=== PATIENT | male | born 1995 | race Two or more races ===

== ENCOUNTER 2023-10-26 17:46 | Emergency (ER) | payer SELFPAY ==
--- NOTE | 2023-10-26 17:45 | DI.RAD_ITS ---
Exam(s) XR HAND RT COMPLETE EXAM: XR HAND RT COMPLETE CLINICAL HISTORY: crush injury, dorsal 3rd MCP swollen. TECHNIQUE: 2D digital imaging was performed of the right hand. Three images were obtained. AP, late ral and oblique views were obtained. COMPARISON: No exams were available for comparison FINDINGS: BONES: No acute fracture is present. No bony destructive lesion is seen. There is a deformity of the 5th metacarpal bone which may reflect old healed fracture. JOINTS: No dislocation present. SOFT TISSUE: There is soft tissue swelling along the dorsum of the hand at the level of the MCP joint s. IMPRESSION: Soft tissue swelling on the dorsum of the hand but no acute fracture or dislocation is identified. DATA REPOSITORY: RADIATION DOSE DELIVERED:
[2023-10-26 17:48] VITALS: BP 127/82; PULSE 112; RESP 16; TEMP 36.8; O2SAT 98
--- NOTE | 2023-10-26 17:54 | W.ED.GENAD ---
Discharge Plan Disposition Patient Disposition: Home Condition: Stable Discharge Details Clinical Impression: Contusion of right hand Primary Care Provider: Unknown,Unknown ED Provider: Derek Jones Discharge Instructions Instructions: Minor Contusion ED Additional Instructions: You were seen in the emergency department for the significant contusion at the base of your right middle finger. There is no fracture seen on your x-ray and your tendons appear to be intact on exam. Please ice the area with gentle compression, ice to complete numbness then let rewarm, repeat this process as many times as you can in the next 4 to 5 days. Please use therapeutic dosing of Tylenol (acetamenophen) & Advil (ibuprofen) in an alternating fashion as follows: Take 1000mg of Tylenol every 6 hours without missing doses- that is 4 times per day. [place] in between the Tylenol dosings, take 400-600mg of Advil also on a 6 hour schedule, that is also 4 times per day. The daily maximum dosing of Tylenol is 4000mg, and the daily maximum dosing of Advil is 2400mg. This is safe to do for weeks. Please note that some common cold medications & prescription pain medications may contain acetamenophen and you need to read OTC drug labels and factor that in to maximum daily dosings. Please follow-up with orthopedics if your pain or range of motion deficit persist past 2 weeks. Please return to the ER for severe increase in swelling, redness, warmth to touch, drainage of pus from the area. Referrals: [facility] [Provider Group] Discharge Data Discharge Date/Time-TO BE ENTERED AT DEPARTURE: 10/26/23 19:12 HPI General Date/Time Provider Initiated Documentation: 10/26/23 17:52. HPI Narrative: 28 year-old male presents to ED today by POV/ambulating with a chief complaint of R dorsal hand injury, R-hand dominant, with onset today around 1500 while chopping wood- they are camping. Quality described as swelling and aching/throbbing pain, he got his hand sandwiched between the axe handle and a piece of wood, no radiation to numbness, gross bruising, inability to move fingers, forearm pain, pain is isolated to dorsal base of 3rd MCP area. Severity is described as moderate. Palliating factors include nothing specific attempted. Provoking factors include nothing specific. Patient not anticoagulated. Related Data Allergies Allergy/AdvReac Type Severity Reaction Status Date / Time No Known Allergies Allergy Unverified 10/26/23 17:53 General Stated Complaint: Orthopedic AMBER: 4 Review of Systems All systems reviewed & are unremarkable except as noted in HPI and below Exam Narrative Exam Narrative: GENERAL APPEARANCE: Well-nourished, non-toxic, awake and alert, atraumatic, no acute distress. SKIN: Warm, pink, dry, intact, without rashes/lesions/ulcerations. HEAD: Normocephalic, atraumatic, normal hair distribution for gender/age. EYES: Pupils PERRLA, EOMs intact without nystagmus, normal conjunctiva, no exudates on lids/lashes. ENT: Nares patent, no circumoral cyanosis, no facial swelling NECK: Supple, trachea midline, painless cervical ROM. LUNGS/CHEST: Non-labored respirations, normal A/P diameter, symmetrical expansion, no chest wall deformity HEART (CV/PV): Regular rate, R radial pulse 2+, no peripheral edema, no JVD. ABDOMEN: Soft, non-distended, no guarding. MSK: Normal ROM, moving all extremities without weakness, no cyanosis, spine midline without tenderness, normal curvature. R HAND: Swelling on the dorsal aspect of the third MCP without crepitus, strength is only slightly limited to pain in all ranges of motion of the right third finger, brisk capillary refill distal, sensation intact, no open lesion, no severe ecchymosis, supination/pronation intact, wrist flexion and extension intact NEURO: Mental Status AAOx4 - alert to person, place, time, events No facial droop, no forehead involvement. Motor: No focal weakness - strength 5/5 in bilateral UEs and LEs, proximal and distal, symmetric. Sensory: sensation intact to light touch globally. Gait normal: patient ambulated without ataxia into ED room. PSYCH: euthymic, cooperative, pleasant, appropriate speech Course Vital Signs Vital signs: Vital Signs Temperature 36.8 C 10/26/23 17:48 Pulse 112 H 10/26/23 17:48 Respiratory Rate 16 10/26/23 17:48 Blood Pressure 127/82 10/26/23 17:48 Pulse Oximetry 98 10/26/23 17:48 Temperature 36.8 C 10/26/23 17:48 Pulse 112 H 10/26/23 17:48 Respiratory Rate 16 10/26/23 17:48 Blood Pressure 127/82 10/26/23 17:48 Pulse Oximetry 98 10/26/23 17:48 Pain Level 7 10/26/23 17:48 Medical Decision Making This dictation utilizes [id number] dictation software and may contain unedited grammatical errors. 28 year-old male presents to ED today by POV/ambulating with a chief complaint of R dorsal hand injury, R-hand dominant, with onset today around 1500 while chopping wood- they are camping. Quality described as swelling and aching/throbbing pain, he got his hand sandwiched between the axe handle and a piece of wood, no radiation to numbness, gross bruising, inability to move fingers, forearm pain, pain is isolated to dorsal base of 3rd MCP area. Severity is described as moderate. Palliating factors include nothing specific attempted. Provoking factors include nothing specific. Patients' medical history: Negative, otherwise healthy. Family and social history: Noncontributory. Pertinent exam findings / vital signs include R HAND: Swelling on the dorsal aspect of the third MCP without crepitus, strength is only slightly limited to pain in all ranges of motion of the right third finger, brisk capillary refill distal, sensation intact, no open lesion, no severe ecchymosis, supination/pronation intact, wrist flexion and extension intact. Differential / pathologies of concern include fracture, contusion, not tendon rupture. Diagnostic studies of: -XR R hand -no acute fracture seen. Interventions of: -Tylenol and Aleve given, recommend RICE therapy. ED Course/Assessment/Plan: 28-year-old male suffered a minor crush injury patient an ax handle in a log while chopping wood, he has mild swelling to the dorsal aspect of the base of the right third MCP without crepitus or significant ecchymosis, he has range of motion and strength intact in the third finger and is neurovascularly intact distal to the injury, has no other hand injuries, x-rays negative for fracture, counseled him on RICE therapy and therapeutic dosing of APAP/NSAIDs, strict return criteria for any signs of neurovascular compromise, may follow-up with orthopedics if pain persist past 2 weeks. Findings not consistent with fracture, neurovascular compromise or tendon rupture. Disposition of contusion of right hand. Patient verbalized understanding of the plan and return to ED criteria and engaged in shared decision making. Imaging Data Radiologic Study: Attestation: I personally reviewed and interpreted this imaging study as follows: Imaging: X-Ray Radiologist's impression: EXAM: XR HAND RT COMPLETE CLINICAL HISTORY: crush injury, dorsal 3rd MCP swollen. TECHNIQUE: 2D digital imaging was performed of the right hand. Three images were obtained. AP, lateral and oblique views were obtained. COMPARISON: No exams were available for comparison FINDINGS: BONES: No acute fracture is present. No bony destructive lesion is seen. There is a deformity of the 5th metacarpal bone which may reflect old healed fracture. JOINTS: No dislocation present. SOFT TISSUE: There is soft tissue swelling along the dorsum of the hand at the level of the MCP joints. IMPRESSION: Soft tissue swelling on the dorsum of the hand but no acute fracture or dislocation is identified. Quality:SDOH Health Related Social Needs: Health related social needs risk of homeless PFSH All Active Problems (Updated 10/26/23 @ 18:55 by ROXY Cordero) Contusion of right hand (Acute) Social History Smoking/Tobacco Use Status: Never Smoking risk assessment performed?: Yes Alcohol Intake: never Substance use type: does not use Do you feel safe at home: Yes Do you feel safe in your relationship?: Yes
[2023-10-26] MEDS: Acetaminophen 500 MG TAB 1000 MG PO (19:11)
[2023-10-26] MEDS: Naproxen 250 MG TAB PO (19:12)
== END 2023-10-26 19:12 | disposition home or self-care (01) ==
PROVIDERS: Emergency Provider Physician Assistant
DX: S60.221A Contusion of right hand, initial encounter (principal); W23.0XXA Caught, crushed, jammed, or pinched between moving objects, initial encounter; Y93.89 Activity, other specified; Y92.89 Other specified places as the place of occurrence of the external cause
CPT/HCPCS: 99283; 73130